=== PATIENT | male | born 1995 | race Caucasian/White ===

== ENCOUNTER 2018-01-16 17:44 | Emergency (ER) | payer OTHER ==
[~2018-01-16] VITALS: Ht 172.7 cm; Wt 120.0 kg
[~2018-01-16 17:44] MED LIST: MENACTRA IM; VARIVAX SC; hydrocortisone
[2018-01-16] MEDS ORDERED: NAPROSYN500 MG PO (18:11)
[2018-01-16] MEDS ORDERED: AMOXICILLIN500 M2 PO (18:11)
[2018-01-16] MEDS ORDERED: NO HOME MEDS (18:57)
[2018-01-16 18:59] VITALS: BP 138/90
== END 2018-01-16 18:59 | disposition home or self-care (01) | DRG 153 ==
LOC: ED 17:44
DX: J02.9 Acute pharyngitis, unspecified (principal); R50.9 Fever, unspecified

== ENCOUNTER 2018-10-19 15:25 | Emergency (ER) | payer OTHER ==
[~2018-10-19] VITALS: Ht 172.7 cm; Wt 110.0 kg
[~2018-10-19 15:25] MED LIST changes: +AMOXICILLIN500 M2 PO; +NAPROSYN500 MG PO; +NO HOME MEDS
[2018-10-19 16:19] VITALS: BP 176/100
== END 2018-10-19 16:32 | disposition home or self-care (01) ==
LOC: ED 15:25
DX: S01.01XA Laceration without foreign body of scalp, initial encounter (principal); W07.XXXA Fall from chair, initial encounter; Y92.89 Other specified places as the place of occurrence of the external cause; Y99.0 Civilian activity done for income or pay

== ENCOUNTER 2018-10-26 10:21 | Emergency (ER) | payer OTHER ==
[~2018-10-26] VITALS: Ht 172.7 cm; Wt 138.6 kg
[2018-10-26 10:42] VITALS: BP 139/74
== END 2018-10-26 10:42 | disposition home or self-care (01) ==
LOC: ED 10:21
DX: S01.00XD Unspecified open wound of scalp, subsequent encounter (principal); X58.XXXD Exposure to other specified factors, subsequent encounter

== ENCOUNTER 2023-02-23 09:08 | Emergency (ER) | payer OTHER ==
[~2023-02-23] VITALS: Ht 172.7 cm; Wt 145.0 kg
[2023-02-23 09:27] VITALS: BP 149/91
[2023-02-23 09:57] LABS: BASO% 0.5 % (0-3); EOS% 1.1 % (0-8); HEMOGLOBIN 13.1 g/dl (14.0-18.0); IMMATURE GRANULOCYTES 0.7 % (0.0-5.0); LYMPH% 51.6 % (15-41); MEAN CELL VOLUME 83.2 fL CALC (80.0-100.0); MEAN CORPUSCULAR HGB 25.9 pG CALC (26.0-32.0); MEAN CORPUSCULAR HGB CONC 31.2 g/dL CAL (32.0-36.0); MONO% 6.9 % (2-13); NEUT# 3.26 thou/uL (1.82-7.42); NEUT% 39.2 % (42-76); RED BLOOD COUNT 5.05 mill/uL (4.70-6.10); RED CELL DISTRI WIDTH 13.4 % (11.5-15.5)
[2023-02-23 10:01] VITALS: BP 125/73
[2023-02-23 10:28] LABS: ALBUMIN 4.6 g/dL (3.2-5.0); ALKALINE PHOSPHATASE 78 u/l (38-126); BUN 12 mg/dL (9-20); BUN/CREATININE RATIO 15 (12-20 (CALC)); CHLORIDE 107 mmol/l (95-108); CREATININE 0.8 mg/dL (0.7-1.3); GFR FOR AFR.AMER. > 60 ML/MIN (>=60 (CALC)); GFR OTHER RACES > 60 ML/MIN (>=60 (CALC)); POTASSIUM 4.5 mmol/l (3.5-5.1); SODIUM 144 mmol/l (137-146); TOTAL PROTEIN 8.6 g/dL (6.3-8.2)
[2023-02-23 10:31] VITALS: BP 144/75
[2023-02-23 10:41] LABS: ANION GAP 16 (6-22 (CALC)); BILIRUBIN, TOTAL 0.2 mg/dL (0.2-1.3); CARBON DIOXIDE 26 mmol/l (22-30); SGOT/AST 52 u/l (17-59)
[2023-02-23] MEDS ORDERED: ZOFRAN4 MG/TAB PO (10:54)
[2023-02-23 11:01] VITALS: BP 140/73
[2023-02-23 11:28] VITALS: BP 140/73
== END 2023-02-23 11:37 | disposition home or self-care (01) ==
LOC: ED 09:08
PROVIDERS: Family Medicine
DX: R53.83 Other fatigue (principal); E66.01 Morbid (severe) obesity due to excess calories; Z20.822 Contact with and (suspected) exposure to COVID-19

== ENCOUNTER 2024-06-26 17:22 | Emergency (ER) | payer SELFPAY ==
[~2024-06-26] VITALS: Ht 172.7 cm; Wt 127.0 kg
[~2024-06-26 17:22] MED LIST changes: +ZOFRAN4 MG/TAB PO
[2024-06-26 17:36] VITALS: BP 150/97
[2024-06-26] MEDS ORDERED: DEXAMETHASONE SOD. PHOSPHATE 10 MG/ML VIAL IM ONE (17:55)
[2024-06-26 18:01] VITALS: BP 152/86
[2024-06-26] MEDS ORDERED: AMOXICILLIN875 MG PO (18:12)
[2024-06-26 18:21] VITALS: BP 128/72
[2024-06-26 18:23] VITALS: BP 128/72
== END 2024-06-26 18:26 | disposition home or self-care (01) | DRG 153 ==
LOC: ED 17:22
DX: J02.9 Acute pharyngitis, unspecified (principal); Z20.822 Contact with and (suspected) exposure to COVID-19